=== PATIENT | male | born 1980 | race Caucasian/White ===

== ENCOUNTER 2017-03-30 06:20 | Emergency (ER) | payer MEDICARE, MEDICAID ==
[~2017-03-30 06:20] MED LIST: FLOMAX0.4 MG PO; NORCO 5/325 TAB1 TAB PO; PERCOCET 5/3251 TAB PO; VICODIN 5/500 T1 TAB PO; ZOFRAN4 MG PO
[2017-03-30] MEDS ORDERED: SPIRIVA18 MC1 INH (06:31)
[2017-03-30] MEDS ORDERED: ACETAMINOPHEN325 M2 PO (06:32)
[2017-03-30] MEDS ORDERED: AUGMENTIN 875-1 EAC2 PO (09:03)
[2017-03-30] MEDS ORDERED: IBUPROFEN800 M1 PO (09:04)
== END 2017-03-30 09:17 ==
LOC: EDMED 06:20
DX: J32.9 Chronic sinusitis, unspecified (principal); J44.9 Chronic obstructive pulmonary disease, unspecified; Z87.442 Personal history of urinary calculi; F17.200 Nicotine dependence, unspecified, uncomplicated; Z79.51 Long term (current) use of inhaled steroids
CPT/HCPCS: J0780; J1200; J1885; J7030